=== PATIENT | male | born 1985 | race Caucasian/White ===

== ENCOUNTER 2016-06-14 18:30 | Emergency (ER) | payer OTHER ==
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
--- NOTE | 2016-06-14 19:55 | ED ORDER SUMMARY ---
..... Patient: BELKIS GOLDSMITH OrderSheet [facility] VisitID: [id number] [place] [address] 30y, M Registration Date/Time: 06/14/2016 ORDER SHEET Weight: 90.7 kg (stated) Allergies: No Known Drug Allergy GENERAL ORDERS: CT Head wo Cont Urgent (18:57 06/14/2016 HBivens A.R.N.P.) (Ack 19:12 LTapper) (19:13 MCampbell) CT Sinus/Facial Bones wo Cont Urgent (18:57 06/14/2016 HBivens A.R.N.P.) (Ack 19:12 LTapper) (19:13 MCampbell) Ice (ice pack for face please) (18:57 06/14/2016 HBivens A.R.N.P.) (19:18 HSoule) Dress Wounds (18:58 06/14/2016 HBivens A.R.N.P.) (19:22 AMcQuoid ER Tech1) Chest 2V Urgent (19:00 06/14/2016 HBivens A.R.N.P.) (Ack 19:12 LTapper) (19:13 MCampbell) MEDICATION ORDERS: Hydrocodone-APAP PO 5/325 mg (NOW, HIGH ALERT MEDICATION) (19:55 06/14/2016 HBivens A.R.N.P.) (Ack 19:55 HSoule) (20:08 HSoule) IV FLUIDS: ORDER SHEET NOTES: [Electronically signed by Ruby Pierre A.R.N.P. (:06/14/2016)] [Electronically signed by Marina Stroud (:06/15/2016)] [Electronically locked/signed by Marina Stroud (06/15/2016)]
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
--- NOTE | 2016-06-14 19:55 | ED ORDER SUMMARY ---
..... Patient: BELKIS GOLDSMITH OrderSheet [facility] VisitID: [id number] [place] [address] 30y, M Registration Date/Time: 06/14/2016 ORDER SHEET Weight: 90.7 kg (stated) Allergies: No Known Drug Allergy GENERAL ORDERS: CT Head wo Cont Urgent (18:57 06/14/2016 HBivens A.R.N.P.) (Ack 19:12 LTapper) (19:13 MCampbell) CT Sinus/Facial Bones wo Cont Urgent (18:57 06/14/2016 HBivens A.R.N.P.) (Ack 19:12 LTapper) (19:13 MCampbell) Ice (ice pack for face please) (18:57 06/14/2016 HBivens A.R.N.P.) (19:18 HSoule) Dress Wounds (18:58 06/14/2016 HBivens A.R.N.P.) (19:22 AMcQuoid ER Tech1) Chest 2V Urgent (19:00 06/14/2016 HBivens A.R.N.P.) (Ack 19:12 LTapper) (19:13 MCampbell) MEDICATION ORDERS: Hydrocodone-APAP PO 5/325 mg (NOW, HIGH ALERT MEDICATION) (19:55 06/14/2016 HBivens A.R.N.P.) (Ack 19:55 HSoule) (20:08 HSoule) IV FLUIDS: ORDER SHEET NOTES: [Electronically signed by Ruby Pierre A.R.N.P. (:06/14/2016)] [Electronically signed by Marina Stroud (:06/15/2016)] [Electronically locked/signed by Marina Stroud (06/15/2016)]
--- NOTE | 2016-06-15 02:29 | ED MAR SUMMARY ---
..... Medication Administration Record [address] [place] [address] Patient: BELKIS GOLDSMITH Visit ID: [id number] 30y, M Weight: 90.7 kg Height/Length: 67 in BMI: 31.3 ALLERGIES: No Known Drug Allergy Given 20:08 06/14/2016 Marina Stroud, Medication Administered: HYDROCODONE-APAP [PO] (HYDROCODONE-ACETAMINOPHEN), Dose: 1 tab 5/325 mg Tablets PO. Medication Ordered: Hydrocodone-APAP PO 5/325 mg (NOW, HIGH ALERT MEDICATION).
--- NOTE | 2016-06-15 02:29 | ED DISCHARGE INSTRUCTIONS ---
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 you take the medicine for a long time. Do not suddenly stop taking your medicine because you may develop a severe reaction. Your body becomes used to the medicine. This does NOT mean you are addicted. Addiction is a behavior related to getting and using a drug for a non-medical reason. If you have pain, you have a medical reason to take pain medicine. Your doctor will tell you how much medicine to take. If your doctor wants you to stop the medicine, the dose will be slowly lowered over time to avoid any side effects. You may get drowsy or dizzy when you first start taking the medicine or change doses. Do not drive, use machinery, or do anything that may be dangerous until you know how the medicine affects you. Stand or sit up slowly. There are different types of narcotic medicines (opiates) for pain. If you take more than one type at the same time, you may have more side effects. Give your health care provider a list of all medicines you use. Your doctor will tell you how much medicine to take. Do not take more medicine than directed. Call emergency for help if you have problems breathing. The medicine will cause constipation. Try to have a bowel movement at least every 2 to 3 days. If you do not have a bowel movement for 3 days, call your doctor or health caregiver services home. Too much acetaminophen can be very dangerous. Do not take Tylenol (acetaminophen) or medicines that contain acetaminophen with this medicine. Many non-prescription medicines contain acetaminophen. Always read the labels carefully. Ibuprofen Oral tablet What is this medicine? IBUPROFEN (eye BYOO proe fen) is a non-steroidal anti-inflammatory drug (NSAID). It is used for dental pain, fever, headaches or migraines, osteoarthritis, rheumatoid arthritis, or painful monthly periods. It can also relieve minor aches and pains caused by a cold, flu, or sore throat. How should I use this medicine? Take this medicine by mouth with a glass of water. Follow the directions on the prescription label. Take this medicine with food if your stomach gets upset. Try to not lie down for at least 10 minutes after you take the medicine. Take your medicine at regular intervals. Do not take your medicine more often than directed. A special MedGuide will be given to you by the pharmacist with each prescription and refill. Be sure to read this information carefully each time. Talk to your animal pathology teacher regarding the use of this medicine in children. Special care may be needed. What side effects may I notice from receiving this medicine? Side effects that you should report to your doctor or health caregiver services home as soon as possible: allergic reactions like skin rash, itching or hives, swelling of the face, lips, or tongue black or bloody stools, blood in the urine or in vomit breathing problems changes in vision chest pain general ill feeling or flu-like symptoms nausea or vomiting redness, blistering, peeling or loosening of the skin, including inside the mouth slurred speech or weakness on one side of the body stomach pain unexplained weight gain or swelling unusually weak or tired yellowing of eyes or skin Side effects that usually do not require medical attention (report to your doctor or health caregiver services home if they continue or are bothersome): constipation or diarrhea dizziness gas or heartburn stomach upset What may interact with this medicine? Do not take this medicine with any of the following medications: cidofovir ketorolac methotrexate pemetrexed This medicine may also interact with the following medications: alcohol aspirin diuretics lithium other drugs for inflammation like prednisone warfarin What if I miss a dose? If you miss a dose, take it as soon as you can. If it is almost time for your next dose, take only that dose. Do not take double or extra doses. Where should I keep my medicine? Keep out of the reach of children. Store at room temperature between 15 and 30 degrees C (59 and 86 degrees F). Keep container tightly closed. Throw away any unused medicine after the expiration date. What should I tell my health care provider before I take this medicine? They need to know if you have any of these conditions: asthma cigarette smoker drink more than 3 alcohol containing drinks a day heart disease or circulation problems such as heart failure or leg edema (fluid retention) high blood pressure kidney disease liver disease stomach bleeding or ulcers an unusual or allergic reaction to ibuprofen, aspirin, other NSAIDS, other medicines, foods, dyes, or preservatives or trying to get breast-feeding What should I watch for while using this medicine? Tell your doctor or healthcare professional if your symptoms do not start to get better or if they get worse. This medicine does not prevent heart attack or stroke. In fact, this medicine may increase the chance of a heart attack or stroke. The chance may increase with longer use of this medicine and in people who have heart disease. If you take aspirin to prevent heart attack or stroke, talk with your doctor or health caregiver services home. Do not take other medicines that contain aspirin, ibuprofen, or naproxen with this medicine. Side effects such as stomach upset, nausea, or ulcers may be more likely to occur. Many medicines available without a prescription should not be taken with this medicine. This medicine can cause ulcers and bleeding in the stomach and intestines at any time during treatment. Ulcers and bleeding can happen without warning symptoms and can cause . To reduce your risk, do not smoke cigarettes or drink alcohol while you are taking this medicine. You may get drowsy or dizzy. Do not drive, use machinery, or do anything that needs mental alertness until you know how this medicine affects you. Do not stand or sit up quickly, especially if you are an older patient. This reduces the risk of dizzy or fainting spells. This medicine can cause you to bleed more easily. Try to avoid damage to your teeth and gums when you brush or floss your teeth. You have been given the following additional information: Physical Assault Crime Victim Laceration, Face (Suture Or Tape) Laceration, How To Minimize Scar Contusion, Eye Contusion, Back Fracture, Nose (With X-Ray) HEAD INJURY, No Wake-Up (Adult) Hydrocodone Bitartrate, Acetaminophen Oral tablet Ibuprofen Oral tablet (Electronically signed by Ruby Pierre A.R.N.P. 06/14/2016 22:28)
--- NOTE | 2016-06-15 02:29 | ED MED RECONCILIATION SUMMARY ---
Patient: BELKIS GOLDSMITH Medication Reconciliation Report [facility] VisitID: [id number] [place] [address] 30y, M Registration Date/Time: 06/14/2016 Weight: 90.7 kg Height/Length: 67 in. BMI: 31.3 ALLERGIES: No Known Drug Allergy The patient's Home Medications are listed below: Unable to obtain. The source(s) of the original Home Medication information: Not obtained. The following Medications were given to the patient in the Emergency Department: Hydrocodone-APAP [PO] PO 1 tab, administered: 06/14/2016 8:08:00 PM The following Medications were prescribed to the patient: [place] 5 mg / 325 mg tablets: take 1 to 2 orally every 6 hours as needed for pain. Dispense fifteen (15). No refills. Substitution is permissible. -- Ruby Pierre, A.R.N.P. Ibuprofen 800 mg tablets: take 1 tablet orally every 8 hours as needed for pain. Dispense thirty (30). No refills. -- Ruby Pierre, A.R.N.P.
--- NOTE | 2016-06-15 02:29 | ED MED RECONCILIATION SUMMARY ---
Patient: BELKIS GOLDSMITH Medication Reconciliation Report [facility] VisitID: [id number] [place] [address] 30y, M Registration Date/Time: 06/14/2016 Weight: 90.7 kg Height/Length: 67 in. BMI: 31.3 ALLERGIES: No Known Drug Allergy The patient's Home Medications are listed below: Unable to obtain. The source(s) of the original Home Medication information: Not obtained. The following Medications were given to the patient in the Emergency Department: Hydrocodone-APAP [PO] PO 1 tab, administered: 06/14/2016 8:08:00 PM The following Medications were prescribed to the patient: [place] 5 mg / 325 mg tablets: take 1 to 2 orally every 6 hours as needed for pain. Dispense fifteen (15). No refills. Substitution is permissible. -- Ruby Pierre, A.R.N.P. Ibuprofen 800 mg tablets: take 1 tablet orally every 8 hours as needed for pain. Dispense thirty (30). No refills. -- Ruby Pierre, A.R.N.P.
--- NOTE | 2016-06-15 02:29 | ED MAR SUMMARY ---
..... Medication Administration Record [address] [place] [address] Patient: BELKIS GOLDSMITH Visit ID: [id number] 30y, M Weight: 90.7 kg Height/Length: 67 in BMI: 31.3 ALLERGIES: No Known Drug Allergy Given 20:08 06/14/2016 Marina Stroud, Medication Administered: HYDROCODONE-APAP [PO] (HYDROCODONE-ACETAMINOPHEN), Dose: 1 tab 5/325 mg Tablets PO. Medication Ordered: Hydrocodone-APAP PO 5/325 mg (NOW, HIGH ALERT MEDICATION).
== END 2016-06-14 20:05 | disposition home or self-care (01) ==
LOC: ED SRH 18:30
DX: S02.2XXA Fracture of nasal bones, initial encounter for closed fracture (principal); S01.81XA Laceration without foreign body of other part of head, initial encounter; S01.112A Laceration without foreign body of left eyelid and periocular area, initial encounter; Y04.0XXA Assault by unarmed brawl or fight, initial encounter; Y92.511 Restaurant or cafe as the place of occurrence of the external cause; Y93.9 Activity, unspecified; Y99.9 Unspecified external cause status; F17.200 Nicotine dependence, unspecified, uncomplicated